=== PATIENT | female | born 1940 | race African-American/Black ===

== ENCOUNTER 2016-11-06 22:29 | Inpatient (IN) | payer MEDICARE, OTHER ==
[~2016-11-06] VITALS: Ht 162.6 cm; Wt 77.1 kg
[~2016-11-06 22:29] MED LIST: ADVAIR 250-501 EACH INH; AMBIEN5 MG ORAL; AMLODIPINE BESY10 MG ORAL; AMOXICILLIN500 MG ORAL; ARTIFICIAL TEAR15 ML BOTH EYES; ATENOLOL25 MG ORAL; ATENOLOL50 MG ORAL; BENADRYL A12.5 MG/5 ORAL; CATAPRES0.1 MG ORAL; COLACE100 MG ORAL; COUMADIN5 MG ORAL; COUMADIN6 MG ORAL; COUMADIN7.5 MG ORAL; COZAAR50 MG ORAL; CYMBALTA60 MG ORAL; DEXILANT60 MG ORAL; DIPHENHYDRAMINE25 M1 ORAL; DULCOLAX10 MG RC; DULCOLAX10 MG RECTAL; FLEET ENEMA133 ML RECTAL; FLOMAX0.4 MG ORAL; FUROSEMIDE20 M1 ORAL; FUROSEMIDE40 MG ORAL; HYDRALAZINE HCL25 M1 ORAL; LASIX80 MG ORAL; LEVAQUIN500 MG ORAL; LEXAPRO20 MG ORAL; LIPITOR10 MG ORAL; LOSARTAN POTASS25 MG ORAL; LOVENOX10 M2 SUBQ; MAGNESIUM OXID400 M1 ORAL; MILK OF MA400 MG/51 ORAL; MIRALAX17 G2 ORAL; MORPHINE IR15 MG ORAL; MORPHINE SULFATE5 MG RC; MS CONTIN30 MG ORAL; NEPHROVITE1 TAB ORAL; NORCO 10-325 T1 EACH ORAL; NORCO 5-325 TA1 EAC1 ORAL; NORCO1 E1 ORAL; NORVASC10 MG ORAL; NORVASC5 MG ORAL; OMEPRAZOLE20 M2 ORAL; OXYCODONE-ACET1 EAC5 ORAL; PERI-COLACE1 EA ORAL; POTASSIUM 25 M25 ME1 PO; POTASSIUM CHLO20 ME1 ORAL; PRAVACHOL20 MG ORAL; PRILOSEC OTC20 MG ORAL; PROAIR HFA8.5 GM INH; SOMA350 MG PO; SYMBICORT 1601 PUFFS INH; SYMBICORT 16010.2 G1 IH; TAMSULOSIN HCL0.4 MG ORAL; ULORIC40 MG ORAL; VALIUM10 MG ORAL; VALIUM2 MG ORAL; VITAMIN D400 INTLU ORAL; WARFARIN SODIUM4 MG ORAL; WARFARIN SODIUM6 MG ORAL; Warfarin RX monitoring MISC; ZANTAC150 MG ORAL
[2016-11-06 22:30] VITALS: BP 129/73
--- NOTE | 2016-11-06 22:51 | Emergency Room Report ---
History of Present Illness General Chief Complaint: Dyspnea/Respdistress Source: Patient, Medical Record, EMS Present Illness HPI Is a 76-year-old female with history of asthma and hypertension. Also history of PE and DVT. She's taking Coumadin. She presents with chief complaint of shortness of breath. She said that she has asthma exacerbation. She had a cold for last 4 days and shortness of breath started today. Also wheezing. Her breathing treatment not helping. Started on antibiotics today. No nausea no vomiting. Does have chest pain because of her respiratory problem. Pain worse with coughing. Better with rest. Denies any radiation. No exertional component. No diaphoresis. EMS gave her 2 breathing treatment on route. Allergies: Coded Allergies: CLONAZEPAM (Unverified Allergy, Severe, 06/22/14) FENTANYL (Unverified Allergy, Severe, Rash, 06/22/14) HYDROMORPHONE (Verified Allergy, Severe, 06/22/14) High BP PROMETHAZINE (Verified Allergy, Severe, Anaphylaxis, 06/22/14) MORPHINE (Verified Allergy, Intermediate, 10/01/15) LORAZEPAM (Verified Allergy, Unknown, Anaphylaxis, 06/22/14) ASPIRIN (Verified Adverse Reaction, Severe, 06/22/14) Pt on Coumadin; was adviced not to take Aspirin Uncoded Allergies: FLU VACCINE (Allergy, Unknown, 11/06/16) Patient History Past Medical History: see triage record, old chart reviewed, HTN, asthma Past Surgical History: other Pertinent Family History: none Social History: Denies: smoking Now: No Immunizations: other Reviewed Nursing Documentation: PMH: Agreed, PSxH: Agreed Nursing Documentation-PMH Hx Cardiac Problems: Yes - A FIB Hx Hypertension: Yes Hx Pacemaker: No Hx Asthma: Yes Hx COPD: No Hx Diabetes: No Hx Cancer: No Hx Gastrointestinal Problems: No Hx Dialysis: No Hx Neurological Problems: No Hx Cerebrovascular Accident: No - HIP SURGERY Hx Seizures: No Hx Syncope: Yes Hx Weakness: Yes Review of Systems Eye: Denies: eye pain, blurred vision ENT: Denies: ear pain, nose congestion, throat swelling Respiratory: Reports: cough, shortness of breath, wheezing Cardiovascular: Reports: chest pain, Denies: palpitations Gastrointestinal: Denies: abdominal pain, diarrhea, nausea, vomiting Musculoskeletal: Denies: back pain, joint pain Skin: Denies: rash Neurological: Denies: headache, numbness Endocrine: Denies: increased thirst, increased urine Hematologic/Lymphatic: Denies: easy bruising All Other Systems: negative except mentioned in HPI Physical Exam Vital Signs Date Time Temp Pulse Resp B/P (MAP) Pulse Ox O2 Delivery O2 Flow Rate FiO2 11/06/16 22:24 98.2 109 21 129/73 100 Room Air vitals normal except for tachycardia Sp02 EP Interpretation: reviewed, normal General Appearance: well appearing, alert, mild distress Head: normocephalic, atraumatic Eyes: bilateral eye PERRL, bilateral eye EOMI ENT: hearing grossly normal, normal pharynx Neck: full range of motion, supple, no meningismus Respiratory: chest non-tender, lungs clear, normal breath sounds Cardiovascular #1: regular rate, rhythm, no murmur Gastrointestinal: normal bowel sounds, non tender, no mass, no organomegaly, no bruit, non-distended Musculoskeletal: back normal, normal range of motion Neurologic: alert, oriented x3 Psychiatric: mood/affect normal Skin: warm/dry Medical Decision Making Diagnostic Impression: Primary Impression: Asthma exacerbation ER Course Patient presents with asthma exacerbation. Still slightly dyspneic. She's anticoagulate already with Coumadin. INR 1.7. No evidence of ACS, PE, dissection to name a few. She does have significant cardiomegaly. Because of her age and multiple medical problems, will admit for further treatment and monitoring. I discussed the case with Dr. Blancas who asked that Dr. Shelley admit. Lab Results Impression labs unremarkable EKG Diagnostic Results Rate: tachycardiac Rhythm: NSR ST Segments: no acute changes Rhythm Strip Diag. Results EP Interpretation: yes Rate: 75 Rhythm: NSR, no PVC's, no ectopy Chest X-Ray Diagnostic Results Chest X-Ray Diagnostic Results : Chest X-Ray Ordered: Yes # of Views/Limited/Complete: 1 View Indication: Shortness of Breath EP Interpretation: Yes Interpretation: no consolidation, no effusion, other - Cardiomegaly Impression: No acute disease Electronically Signed by: Electronically signed by Carroll Davis MD Last Vital Signs Date Time Temp Pulse Resp B/P (MAP) Pulse Ox O2 Delivery O2 Flow Rate FiO2 11/06/16 22:30 98.3 110 20 129/73 100 Room Air Status: improved Disposition: ADMITTED INPATIENT Condition: Serious DAVIS,CARROLL M.D. Nov 06, 2016 22:51
[2016-11-06 23:00] LABS: MEAN CORPUSCULAR HEMOGLOBIN 29.4 PG (27.0-31.0); MEAN CORPUSCULAR VOLUME 92 FL (80-99); MEAN PLATELET VOLUME 7.4 FL (6.5-10.1); PLATELET COUNT 243 K/UL (150-450); RED BLOOD COUNT 4.06 M/UL (4.20-5.40); RED CELL DISTRIBUTION WIDTH 14.4 % (11.6-14.8); WHITE BLOOD COUNT 6.3 K/UL (4.8-10.8)
[2016-11-06 23:05] LABS: INR 1.7 (0.9-1.1); PROTHROMBIN TIME 17.6 SEC (9.30-11.50)
[2016-11-06 23:10] LABS: TROPONIN I < 0.30 ng/mL (<=0.30)
[2016-11-06 23:13] LABS: ALANINE AMINOTRANSFERASE 13 U/L (3-33); ANION GAP 17 (5-15); ASPARTATE AMINO TRANSFERASE 31 U/L (5-40); CALCIUM 9.5 mg/dL (8.6-10.2); CARBON DIOXIDE 27 mEQ/L (20-30); CHLORIDE 98 mEQ/L (98-107); CREATININE 1.2 mg/dL (0.5-0.9); HEMOLYSIS 105; POTASSIUM 3.5 mEQ/L (3.4-4.9); SODIUM 142 mEQ/L (135-145); TOTAL PROTEIN 8.4 g/dL (6.6-8.7)
[2016-11-06 23:15] VITALS: BP 130/78
[2016-11-06 23:24] LABS: ANISOCYTOSIS 1+; BAND NEUTROPHILS % (MANUAL) 6 % (0-8); BASOPHILS % (MANUAL) 0 % (0-2); CKMB 2.8 ng/mL (< 3.8); EOSINOPHILS % (MANUAL) 0 % (0-3); HYPOCHROMASIA 1+; LYMPHOCYTES % (MANUAL) 9 % (20-45); NEUTROPHILS % (MANUAL) 82 % (45-75); PLATELET ESTIMATE ADEQUATE; PLATELET MORPHOLOGY NORMAL; TOTAL CELLS COUNTED 100
[2016-11-06] MEDS ORDERED: Solu-MEDROL 125mg Inj IVP ONE (23:30)
[2016-11-06] MEDS ORDERED: DuoNeb 0.5-3(2.5)mg/3ml neb HHN ONE (23:45)
[2016-11-06 23:50] LABS: APPEARANCE,URINE CLEAR; KETONES,URINE NEGATIVE (NEGATIVE); LEUKOCYTE ESTERASE ,URINE 1+ (NEGATIVE); NITRITE,URINE NEGATIVE (NEGATIVE); PH,URINE 6 (4.5-8.0); PROTEIN,URINE NEGATIVE (NEGATIVE); UROBILINOGEN,URINE 1 MG/DL (0.0-1.0)
[2016-11-06 23:55] LABS: RBC,URINE 0-2 /HPF (0 - 2); SQUAMOUS EPITHELIAL CELL,UR FEW /LPF (NONE/OCC); WBC,URINE 0-2 /HPF (0 - 2)
[2016-11-07 00:40] VITALS: BP 130/74
[2016-11-07 01:19] VITALS: BP 125/68
[2016-11-07 04:00] VITALS: BP 114/55
[2016-11-07] MEDS ORDERED: Nitroglycerin Subl 0.4mg tab SL PRN (06:45)
[2016-11-07] MEDS ORDERED: DuoNeb 0.5-3(2.5)mg/3ml neb HHN PRN (06:45)
[2016-11-07] MEDS ORDERED: Norco 10mg/325mg tab ORAL PRN (06:45)
[2016-11-07] MEDS ORDERED: Zosyn 3.375gm q8h **Extended infusion IVPB SCH ×2 (08:00)
[2016-11-07] MEDS ORDERED: Losartan 25mg tab ORAL SCH (09:00)
[2016-11-07] MEDS ORDERED: DULoxetine 30mg cap ORAL SCH (09:00)
[2016-11-07] MEDS ORDERED: Theophylline ER 100mg ORAL SCH (09:00)
[2016-11-07] MEDS ORDERED: Heparin 5000 units/ml inj SUBQ SCH (09:00)
[2016-11-07] MEDS ORDERED: Warfarin Sodium 4mg ORAL SCH (09:00)
--- NOTE | 2016-11-07 10:09 | Diagnostic Imaging Report ---
Indication: SOB Technique: One view of the chest Comparison: 10/01/2015 Findings: The heart is enlarged. Aorta is tortuous and ectatic. The upper mediastinum is unremarkable. There is a large retrocardiac hiatal hernia. This is less evident on the prior exam, but is demonstrated on a CT scan of November 2014 Lungs and pleural spaces are clear Impression: No acute cardiopulmonary process Cardiomegaly Hiatal hernia, also previously reported
[2016-11-07] MEDS ORDERED: Solu-MEDROL 125mg Inj IV SCH (12:00)
[2016-11-07] MEDS ORDERED: Piperacillin/Tazobactam 2.25 GM in D5W 55 ML IV SCH (14:00)
[2016-11-07] MEDS ORDERED: Tamsulosin 0.4mg cap ORAL SCH (21:00)
--- NOTE | 2016-11-09 14:46 | Cardiology Report ---
APPROVED REPORT EKG Measurement Heart [id number] Sinus tachycardia Left ventricular hypertrophy with repolarization abnormality Abnormal ECG
--- NOTE | 2016-11-10 10:49 | Discharge Summary ---
Discharge Summary Hospital Course Date of Admission Nov 06, 2016 at 23:42 Date of Discharge Nov 07, 2016 at 07:15 Admitting Diagnosis asthma exacerbation HPI Devika Anaya is a 76 year old female who was admitted on Nov 06, 2016 at 23:42 for Asthma Exacerbation Hospital Course dc summary# [id number] Discharge Discharge Disposition Patient signed AMA Discharge Diagnoses: Discharge Instructions Discharge Instructions Special Instructions I have been assigned to complete a D/C Summary on this account. I was not involved in the patient management Zora Hess NP ([facility]) Nov 10, 2016 10:49
--- NOTE | 2016-11-11 04:02 | Discharge Summary 2 SIG ---
DATE OF ADMISSION: 11/06/2016 DATE OF DISCHARGE: 11/07/2016 Reason For Admission: This is a 76-year-old female with a history of atrial fibrillation, asthma, COPD, hypertension, DVT, PE, presented to emergency department with a complaint of shortness of breath. The patient had a cold for 4 days and shortness of breath started at that time. She reported wheezing. Breathing treatment that she had at home did not help. She was started on oral antibiotics per primary medical doctor. No nausea. No vomiting. Had chest pain due to respiratory problems. Pain worse with coughing and better with rest. She denies any radiation of the pain. No exertional component. No diaphoresis. Breathing treatment was given en route by paramedics. The patient had a prior history of asthma exacerbation and feels that this is her asthma acting out. In the emergency department, the patient was tachycardic at 109 to 111, afebrile, pulse oximetry stable on room air. EKG revealed normal sinus rhythm. While EKG was done, her heart rate was down to 75. No PVC. No ectopy. No acute ischemic changes. Laboratory workup revealed urinalysis was negative for evidence of UTI. Electrolytes revealed creatinine 1.2, BUN 13, anion gap 17. CK 154. Troponin negative. ProBNP 601. No leukocytosis. Mild hemoglobin of 11.9. Chest x-ray revealed no acute cardiopulmonary process, cardiomegaly. Hiatal hernia previously described. The patient was admitted for further management. ADMITTING DIAGNOSES: 1. Acute asthma exacerbation. 2. Hypertension. 3. History of deep venous thrombosis, and history of pulmonary embolism, on anticoagulation therapy . 4. Paroxysmal atrial fibrillation. Hospital Stay: The patient was admitted. The patient was started on supplemental oxygen to keep saturation above 92%. The patient was started on pulmonary toilet consisting of handheld nebulizer and chest percussion therapy. The patient was started on empiric antibiotics. Sputum culture was ordered. The patient was started on IV steroids. Of note, loading dose of steroids was given in the emergency department. The patient was started on the theophylline. Pain management provided. Home medications were resumed. Blood pressure was managed with calcium channel soledad, beta-soledad, and ARB. Antidepressive resumed. DVT prophylaxis provided. INR subtherapeutic at 1.7. The patient reminded to follow up with the primary medical doctor for frequent followup to dose Coumadin to keep it in therapeutic range. The patient subsequently decided to sign against medical advice. She was shouting on the staff to stay away from her and leave her alone. Her son picked her up. The patient was persuaded to get a wheelchair while waiting to be escorted down here. reinforcing steel worker spoke with the patient as well to address concern and attempt to deescalate the situation. The patient was allowed to vent frustration. The patient was deescalated, however, did not want to continue medical care at the [facility]. reinforcing steel worker accompanied the patient down to the emergency room, waiting room where she was waiting for her son to arrive. The patient signed against medical advice form. FINAL DIAGNOSES: 1. Acute asthma exacerbation. 2. Hypertension. 3. History of deep venous thrombosis and history of pulmonary embolism. 4. Paroxysmal atrial fibrillation. Da Blancas M.D. I have been assigned to dictate discharge summary on this account and I was not involved in the patient's management. Zora Hess ([facility]) NCharyPChary DR: Marcia JOB#: [id number] CC:
== END 2016-11-07 07:15 | disposition left against medical advice (07) | DRG 203 ==
LOC: EDBD 22:29 → EMR 22:40 → 4E 23:42 → EDBEDREQ 11-07 00:03 → 4E 11-07 01:45
DX: J45.901 Unspecified asthma with (acute) exacerbation (principal); I48.0 Paroxysmal atrial fibrillation; J44.9 Chronic obstructive pulmonary disease, unspecified; Z86.718 Personal history of other venous thrombosis and embolism; Z86.711 Personal history of pulmonary embolism; I10 Essential (primary) hypertension; Z79.01 Long term (current) use of anticoagulants; Z88.6 Allergy status to analgesic agent; Z88.7 Allergy status to serum and vaccine; Z88.8 Allergy status to other drugs, medicaments and biological substances
CPT/HCPCS: 36415; 71010; 80053; 81003; 82550; 82553; 83880; 84484; 85007; 85025; 85610; 85730; 93005; 94640; 94664; 99285; J2405; J7620